=== PATIENT | male | born 1965 | race Caucasian/White ===

== ENCOUNTER 2017-05-13 07:42 | Day surgery (SDC) | payer MEDICARE ==
[2017-05-13] MEDS ORDERED: Lactated Ringer's 500 ML IV ONE (08:02)
[2017-05-13 08:14] VITALS: BMI 24.3
[2017-05-13] MEDS ORDERED: Midazolam 2 MG/2 ML VIAL ONE (09:28)
[2017-05-13] MEDS ORDERED: Propofol 10 mg/ml Inj (20 ML) ONE (09:28)
[2017-05-13] MEDS ORDERED: Dexamethasone 4 mg/1 ml ONE (09:57)
[2017-05-13] MEDS ORDERED: DiphenhydrAMINE 50 mg/ml Inj ONE (09:57)
[2017-05-13 11:07] VITALS: BP 123/67; PULSE 68; RESP 20; TEMP 97; O2SAT 100
== END 2017-05-13 13:22 | disposition home or self-care (01) ==
LOC: H.ENDO 07:42
PROVIDERS: ATTEND Internal Medicine Gastroenterology
DX: Z12.11 Encounter for screening for malignant neoplasm of colon (principal); E78.5 Hyperlipidemia, unspecified; I10 Essential (primary) hypertension; K64.8 Other hemorrhoids; K21.0 Gastro-esophageal reflux disease with esophagitis; K31.9 Disease of stomach and duodenum, unspecified; R12 Heartburn
CPT/HCPCS: 43239; 45378; 88307; J1100; J1200; J2001; J2250; J2704; J3010; J7120

== ENCOUNTER 2018-12-16 10:12 | Inpatient (IN) | payer MEDICARE, MEDICAID ==
[2018-12-16 10:13] VITALS: BMI 28.5
--- NOTE | 2018-12-16 11:19 | ED PDOC ---
HPI: General Adult Time Seen by Provider: 12/16/18 10:37 Chief Complaint (Nursing): GI Problem Chief Complaint (Provider): Dizziness History Per: Patient, Pipelines Supervisor (Hermila Nance [id number]) History/Exam Limitations: no limitations Onset/Duration Of Symptoms: Hrs Additional History Per: Patient Additional Complaint(s): 53yo male comes to ER reporting dizziness and vomiting since this morning. Patient states he was fine when he woke up, went to go make breakfast and then suddenly felt dizzy. Patient describes it as room spinning and states he never had such episode in his life. No additional complaints of headache, weakness, numbness, vision changes. No additional complaints. PMD: Dr. Allen NIHSS Stroke Scale - Date/Time Evaluation Performed Date Performed: 12/16/18 Time Performed: 16:05 When Was NIHSS Performed: Baseline - How Severe is the Stroke Level of Consciousness: 0=Alert LOC to Questions: 0=Both comments correct LOC to commands: 0=Obeys both correctly Best Gaze: 0=Normal (nystagmus) Visual: 0=No visual loss Facial: 0=Normal Motor Arm - Left: 0=No drift Motor Arm - Right: 0=No drift Motor Leg - Left: 0=No drift Motor Leg - Right: 0=No drift Limb Ataxia: 0=Absent Sensory: 0=Normal Best Language: 0=No aphasia Dysarthia: 0=Normal articulation Extinction & Inattention (Neglect): 0=Normal, no object Score: 0 Past Medical History Reviewed: Historical Data, Nursing Documentation, Vital Signs Vital Signs: Last Vital Signs Temp 97.3 F L 12/16/18 10:13 Pulse 81 12/16/18 10:13 Resp 20 12/16/18 10:13 BP 154/90 H 12/16/18 10:13 Pulse Ox 100 12/16/18 10:13 - Medical History PMH: Arthritis, Fractures (RT. ARM PLATE), Gastritis, HTN, Hypercholesterolemia, Hyperlipidemia, Peripheral Edema Denies: Diabetes, Hepatitis, HIV, Chronic Kidney Disease, Seizures, Sexually Transmitted Disease - Surgical History Surgical History: No Surg Hx - Family History Family History: States: Unknown Family Hx - Immunization History Hx Tetanus Toxoid Vaccination: No Hx Influenza Vaccination: No Hx Pneumococcal Vaccination: No - Home Medications Home Medications: Ambulatory Orders Medication Instructions Recorded Losartan [Cozaar] 100 mg PO DAILY 05/13/17 Rosuvastatin Calcium [Crestor] 10 mg PO DAILY 05/13/17 - Allergies Allergies/Adverse Reactions: Allergies Allergy/AdvReac Type Severity Reaction Status Date / Time No Known Allergies Allergy Verified 05/13/17 08:14 Review of Systems ROS Statement: Except As Marked, All Systems Reviewed And Found Negative Constitutional: Negative for: Fever, Chills Eyes: Negative for: Vision Change Gastrointestinal: Positive for: Vomiting Neurological: Positive for: Dizziness. Negative for: Weakness, Numbness Physical Exam - Reviewed Nursing Documentation Reviewed: Yes Vital Signs Reviewed: Yes - Physical Exam Appears: Positive for: Non-toxic, Uncomfortable Head Exam: Positive for: ATRAUMATIC, NORMAL INSPECTION, NORMOCEPHALIC Skin: Positive for: Normal Color, Warm, Dry Eye Exam: Positive for: EOMI, PERRL, Nystagmus (horizontal nystagmus on gazing to the right) ENT: Positive for: Other (dizzinee reproduced with head movements) Neck: Positive for: Normal, Supple Cardiovascular/Chest: Positive for: Regular Rate, Rhythm Respiratory: Positive for: Normal Breath Sounds Extremity: Positive for: Normal ROM Neurological/Psych: Positive for: Awake, Alert, Symmetric/Intact Strength (5/5 clinician oncology strength; 5/5 motor strength), Oriented (x 3). Negative for: Motor/Sensory Deficits - Laboratory Results Result Diagrams: 12/16/18 12:05 12/16/18 12:05 - ECG O2 Sat by Pulse Oximetry: 100 (RA) Pulse Ox Interpretation: Normal Medical Decision Making Medical Decision Making: Impression: Dizziness, likely BPPV Plan: -- Labs -- CT Head -- Meclizinne 50mg PO -- Zofran 4mg IV [address] Head FINDINGS: HEMORRHAGE: No intracranial hemorrhage. BRAIN: Normal pollock-white matter differentiation and density are appreciated throughout the cerebrum and cerebellum with the brainstem appearing unremarkable as well. There is no mass effect. There is no suspicious extra-axial fluid collection and the midline brain anatomy appears diffusely unremarkable. VENTRICLES: Unremarkable. No hydrocephalus. CALVARIUM: Unremarkable. PARANASAL SINUSES: Unremarkable as visualized. No significant inflammatory changes. MASTOID AIR CELLS: Unremarkable as visualized. No inflammatory changes. OTHER FINDINGS: None. IMPRESSION: Unremarkable unenhanced head CT. 1600 On reassessment, patient reports persistent dizziness. Discussed case with Dr. [place], patient to be admitted for observation for rule out stroke. Dr. Galloway consult placed for neurology. ASA given. urine, flu and cxr ordered given leukocytosis Plan of care discussed w patient, patient is agreeable. Scribe Attestation: Documented by Marycarmen Henderson acting as a scribe for Donald Swift MD. Provider Attestation: All medical record entries made by the Scribe were at my direction and personally dictated by me. I have reviewed the chart and agree that the record accurately reflects my personal performance of the history, physical exam, medical decision making, and the department course for this patient. I have also personally directed, reviewed, and agree with the discharge instructions and d isposition. Disposition - Clinical Impression Clinical Impression: Dizziness - Patient ED Disposition Is Patient to be Admitted: Yes - Disposition Disposition Time: 16:00 Condition: STABLE Forms: [employer] (Dominican)
[2018-12-16 12:26] LABS: BASO # 0.1 K/uL (0.0-0.2); BASO % 0.5 % (0.0-2.0); EOS % 0.3 % (0.0-4.0); HEMOGLOBIN 13.2 g/dL (12.0-18.0); LYMPH # 1.3 K/uL (1.0-4.3); MEAN CELL VOLUME 87.5 fl (80.0-94.0); MEAN CORPUSCULAR HEMOGLOBIN 29.3 pg (27.0-31.0); MEAN CORPUSCULAR HGB CONC 33.5 g/dL (33.0-37.0); MEAN PLATELET VOLUME 8.5 fl (7.2-11.7); MONO # 0.4 K/uL (0.0-0.8); NEUT # 12.7 K/uL (1.8-7.0); NEUT % 87.2 % (50.0-75.0); NRBC % 0.1 % (0.0-0.0); PLATELET COUNT 220 K/uL (130-400); RBC 4.48 Mil/uL (4.40-5.90); RED CELL DISTRIBUTION WIDTH 13.8 % (11.5-14.5); WHITE BLOOD COUNT 14.6 K/uL (4.8-10.8)
[2018-12-16 12:36] LABS: ALBUMIN 3.1 g/dL (3.5-5.0); BLOOD UREA NITROGEN 12 mg/dl (9-20); CALCIUM 8.7 mg/dL (8.4-10.2); GFR NON-AFRICAN AMERICAN > 60
[2018-12-16 12:42] LABS: ALT/SGPT 30 U/L (21-72); AST/SGOT 51 U/L (17-59)
[2018-12-16 13:02] LABS: LYMPHOCYTE 10 % (20-50); MONOCYTE 2 % (0-10); NEUTROPHIL 88 % (42-75); PLATELET ESTIMATE NORMAL (NORMAL); TOTAL CELLS COUNTED 100
--- NOTE | 2018-12-16 13:39 | CT ---
Date of service: 12/16/2018 PROCEDURE: CT HEAD WITHOUT CONTRAST. HISTORY: dizzziness COMPARISON: None available. TECHNIQUE: Axial computed tomography images were obtained through the head/brain without intravenous contrast. Radiation dose: Total exam DLP = 946.97 mGy-cm. This CT exam was performed using one or more of the following dose reduction techniques: Automated exposure control, adjustment of the mA and/or kV according to patient size, and/or use of iterative reconstruction technique. FINDINGS: HEMORRHAGE: No intracranial hemorrhage. BRAIN: Normal pollock-white matter differentiation and density are appreciated throughout the cerebrum and cerebellum with the brainstem appearing unremarkable as well. There is no mass effect. There is no suspicious extra-axial fluid collection and the midline brain anatomy appears diffusely unremarkable. VENTRICLES: Unremarkable. No hydrocephalus. CALVARIUM: Unremarkable. PARANASAL SINUSES: Unremarkable as visualized. No significant inflammatory changes. MASTOID AIR CELLS: Unremarkable as visualized. No inflammatory changes. OTHER FINDINGS: None. IMPRESSION: Unremarkable unenhanced head CT.
[2018-12-16 17:02] LABS: GRANULAR CAST 97 /lpf (0-1); RENAL EPITHELIAL 10 /hpf (0-3); SQUAMOUS EPITHIAL 7 /hpf (0-5); URINE BACTERIA OCC (<OCC); URINE BILIRUBIN NEGATIVE (NEGATIVE); URINE BLOOD NEGATIVE (NEGATIVE); URINE CLARITY SLIGHTY-CLOUDY (Clear); URINE COLOR YELLOW (YELLOW); URINE GLUCOSE (UA) 150 mg/dL (NEGATIVE); URINE LEUKOCYTE ESTERASE NEG Leu/uL (Negative); URINE PROTEIN >=500 mg/dL (NEGATIVE); URINE UROBILINOGEN 0.2-1.0 mg/dL (0.2-1.0)
[2018-12-16 17:07] LABS: URINE AMORPHOUS SEDIMENT FEW /ul (<OCC)
--- NOTE | 2018-12-16 17:46 | RAD ---
Date of service: 12/16/2018 HISTORY: Dizziness. Vomiting. COMPARISON: 01/08/2016. FINDINGS: LUNGS: No active pulmonary disease. PLEURA: No significant pleural effusion identified, no pneumothorax apparent. CARDIOVASCULAR: No atherosclerotic calcification present No radiographic findings to suggest acute or significant cardiovascular disease. OSSEOUS STRUCTURES: No significant abnormalities. VISUALIZED UPPER ABDOMEN: Normal. OTHER FINDINGS: None. IMPRESSION: No active disease. No significant interval change compared to the prior examination(s).
[2018-12-16] MEDS: Dextrose 5%/0.45% NS 1,000 ML IV SCH (22:17)
[2018-12-17 04:01] LABS: URINE BACTERIA RARE (<OCC); URINE BILIRUBIN NEGATIVE (NEGATIVE); URINE BLOOD NEGATIVE (NEGATIVE); URINE CLARITY SLIGHTY-CLOUDY (Clear); URINE COLOR YELLOW (YELLOW); URINE GLUCOSE (UA) 150 mg/dL (NEGATIVE); URINE LEUKOCYTE ESTERASE NEG Leu/uL (Negative); URINE PROTEIN >=500 mg/dL (NEGATIVE); URINE UROBILINOGEN 0.2-1.0 mg/dL (0.2-1.0)
[2018-12-17] MEDS: Levothyroxine 50 MCG TAB PO SCH (05:44)
[2018-12-17 05:46] LABS: HEMOGLOBIN 13.2 g/dL (12.0-18.0); MEAN CELL VOLUME 88.4 fl (80.0-94.0); MEAN CORPUSCULAR HEMOGLOBIN 29.1 pg (27.0-31.0); MEAN CORPUSCULAR HGB CONC 32.9 g/dL (33.0-37.0); RBC 4.52 Mil/uL (4.40-5.90); RED CELL DISTRIBUTION WIDTH 14.1 % (11.5-14.5); WHITE BLOOD COUNT 12.6 K/uL (4.8-10.8)
[2018-12-17 06:10] LABS: ALBUMIN 2.7 g/dL (3.5-5.0); ALT/SGPT 31 U/L (21-72); AMYLASE 86 U/L (30-110); AST/SGOT 32 U/L (17-59); BLOOD UREA NITROGEN 12 mg/dl (9-20); CALCIUM 8.8 mg/dL (8.4-10.2); GFR NON-AFRICAN AMERICAN > 60; HDL CHOLESTEROL 38 MG/DL (30-70); LIPASE 101 U/L (23-300)
[2018-12-17 06:16] LABS: LDL CHOLESTEROL 114 mg/dL (0-129)
[2018-12-17] MEDS ORDERED: Gadodiamide 287 MG/ML VIAL (15ML) IV ONE (07:42)
[2018-12-17] MEDS: Dextrose 5%/0.45% NS 1,000 ML IV SCH ×2 (09:14→20:00)
[2018-12-17 10:52] LABS: T3 1.14 nmol/L (1.49-2.60)
--- NOTE | 2018-12-17 11:49 | MRI ---
Date of service: 12/17/2018 PROCEDURE: MRI BRAIN WITH AND WITHOUT CONTRAST HISTORY: Dizziness COMPARISON: CT head without contrast from 12/16/2018. TECHNIQUE: Multiplanar, multisequence MR images of the brain were obtained with and without intravenous contrast enhancement. 18 mL Omniscan was injected intravenously. FINDINGS: HEMORRHAGE: None DWI: No evidence of an acute or early subacute infarction. BRAIN PARENCHYMA: Hernandez-white matter differentiation is preserved. There is no mass, mass effect or abnormal extra-axial fluid collection. There is no territorial infarction. The midline sagittal structures are normal. ENHANCEMENT: No abnormal intracranial enhancement. VENTRICLES: The ventricles are normal in size, shape and configuration. CRANIUM: There is normal bone marrow signal pattern. ORBITS: Grossly unremarkable. PARANASAL SINUSES/MASTOIDS: Clear VASCULAR SYSTEM: There are normal signal voids in the larger intracranial arteries. OTHER FINDINGS: None . IMPRESSION: Unremarkable pre and post contrast enhanced MRI of the brain.
[2018-12-17] MEDS ORDERED: Ergocalciferol 50,000 Intl Units Cap PO SCH (12:45)
--- NOTE | 2018-12-17 13:54 | CARD ---
APPROVED REPORT Date of service: 12/17/2018 EXAM: Two-dimensional and M-mode echocardiogram with Doppler and color Doppler. Other Information Quality : GoodRhythm : NSR INDICATION Dizziness and Vertigo 2D DIMENSIONS IVSd1.31 (0.7-1.1cm)LVDd5.25 (3.9-5.9cm) LVOT Diameter2.51 (1.8-2.4cm)PWd0.93 (0.7-1.1cm) IVSs1.23 (0.8-1.2cm)LVDs3.89 (2.5-4.0cm) FS (%) 25.9 %PWs1.49 (0.8-1.2cm) M-Mode DIMENSIONS Left Atrium (MM)4.29 (2.5-4.0cm)IVSd1.26 (0.7-1.1cm) Aortic Root3.47 (2.2-3.7cm)LVDd5.41 (4.0-5.6cm) Aortic Cusp Exc.2.21 (1.5-2.0cm)PWd1.03 (0.7-1.1cm) IVSs1.47 cmFS (%) 28 % LVDs3.88 (2.0-3.8cm)PWs1.47 cm Aortic Valve AoV Peak Bfvhemex959.2cm/sAoV VTI22.8cmAO Peak GR.5mmHg LVOT Peak Nuzmimfk083.6cm/sLVOT VTI19.19cmAO Mean GR.3mmHg CARMELA (VMAX)2.13jx1QXI (VTI)2.09cm2 Mitral Valve E/A ratio0.0 TDI E/Lateral E'0.0E/Medial E'0.0 LEFT VENTRICLE The left ventricle is normal size. There is normal left ventricular wall thickness. The left ventricular systolic function is normal. The estimated ejection fraction is 55-60% No regional wall motion abnormalities noted.. Transmitral Doppler flow pattern is Grade I-abnormal relaxation pattern. No left ventricle thrombus noted on this study. There is no ventricular septal defect visualized. There is no left ventricular aneurysm. There is no mass noted in the left ventricle. RIGHT VENTRICLE The right ventricle is normal size. There is normal right ventricular wall thickness. The right ventricular systolic function is normal. ATRIA The left atrium is mildly dilated. The right atrium size is normal. The interatrial septum is intact with no evidence for an atrial septal defect. AORTIC VALVE The aortic valve is normal in structure. No aortic regurgitation is present. There is no aortic valvular stenosis. There is no aortic valvular vegetation. MITRAL VALVE The mitral valve is normal in structure. There is no evidence of mitral valve prolapse. There is no mitral valve stenosis. There is mild mitral valve regurgitation noted. TRICUSPID VALVE The tricuspid valve is normal in structure. There is no tricuspid valve regurgitation noted. There is no tricuspid valve prolapse or vegetation. There is no tricuspid valve stenosis. PULMONIC VALVE The pulmonary valve is normal in structure. There is no pulmonic valvular regurgitation. There is no pulmonic valvular stenosis. GREAT VESSELS The aortic root is normal in size. The ascending aorta is normal in size. The pulmonary artery is normal. The IVC is normal in size and collapses >50% with inspiration. PERICARDIAL EFFUSION There is no pericardial effusion. There is no pleural effusion. <Conclusion> The estimated ejection fraction is 55-60% Transmitral Doppler flow pattern is Grade I-abnormal relaxation pattern. The left atrium is mildly dilated. There is mild mitral valve regurgitation noted. There is no tricuspid valve regurgitation noted. The IVC is normal in size and collapses >50% with inspiration.
--- NOTE | 2018-12-17 14:43 | CP.PCM.HP ---
History of Present Illness - History of Present Illness History of Present Illness: CC: Dizziness. 53 y/o M, with extensive PMHx : HTN, Dyslipidemia, PVD, O/A, Heriated Disk, ORIF R Forearm 2nd to Fx, Pt was brought to [facility] on 12/16[facility]18, by EMS to be evaluated for a new onset of Dizziness on DOA. As per PT, he woke up on 12/16/18 AM and since stated to walk, he had a suddenly feeling of dizziness/light-headed associated to nausea and vomiting with no relief. 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 Pt denied: Fever, chills, abdominal pain, urinary symptoms, CP, palpitations, headache, weakness, numbness, vision changes, SOB, cough, sick contact, recent travel out of [facility]. Head CT: Unremarkable. Brain MRI: Unremarkable. Echo: LVEF: 55-60%, mild Mitral valve regurgitation, Transmitral Doppler is grade I abnormal relaxation pattern. CXR: No active disease. Carotid U-S: No evidence of significant stenosis. Present on Admission - Present on Admission Any Indicators Present on Admission: No Review of Systems - Constitutional Constitutional: Other (negative) - EENT Eyes: Requires Corrective Lenses Ears: Other (negative) Nose/Mouth/Throat: Other (negative) - Cardiovascular Cardiovascular: Lightheadedness, Rapid Heart Rate - Respiratory Respiratory: Other (negative) - Gastrointestinal Gastrointestinal: Nausea, Vomiting - Genitourinary Genitourinary: Other (negative) - Musculoskeletal Musculoskeletal: Arthralgias - Integumentary Integumentary: Other (negative) - Neurological Neurological: Dizziness - Psychiatric Psychiatric: Other (negative) - Endocrine Endocrine: Other (negative) - Hematologic/Lymphatic Hematologic: Other (negative) Past Patient History - Infectious Disease Hx of Infectious Diseases: None - Past Medical History & Family History Past Medical History?: Yes Pertinent Family History: Unknown - Past Social History Smoking Status: Never Smoked Alcohol: None Drugs: Denies Home Situation {Lives}: Alone - CARDIAC Hx Cardiac Disorders: Yes Hx Hypercholesterolemia: Yes Hx Hypertension: Yes Hx Peripheral Edema: Yes - PULMONARY Hx Respiratory Disorders: No - NEUROLOGICAL Hx Neurological Disorder: No Hx Seizures: No - HEENT Hx HEENT Problems: No - RENAL Hx Chronic Kidney Disease: No - ENDOCRINE/METABOLIC Hx Endocrine Disorders: No - HEMATOLOGICAL/ONCOLOGICAL Hx Blood Disorders: No Hx Human Immunodeficiency Virus (HIV): No - INTEGUMENTARY Hx Dermatological Problems: No - MUSCULOSKELETAL/RHEUMATOLOGICAL Hx Musculoskeletal Disorders: Yes Hx Arthritis: Yes Hx Falls: No Hx Fractures: Yes (RT. ARM PLATE) - GASTROINTESTINAL Hx Gastrointestinal Disorders: Yes Hx Gastritis: Yes - GENITOURINARY/GYNECOLOGICAL Hx Sexually Transmitted Disorders: No - PSYCHIATRIC Hx Psychophysiologic Disorder: No Hx Substance Use: No - SURGICAL HISTORY Hx Surgeries: Yes Other/Comment: RT ARM SX - ANESTHESIA Hx Anesthesia: Yes Hx Anesthesia Reactions: No Hx Malignant Hyperthermia: No Meds Allergies/Adverse Reactions: Allergies Allergy/AdvReac Type Severity Reaction Status Date / Time No Known Allergies Allergy Verified 05/13/17 08:14 Physical Exam - Constitutional Appears: No Acute Distress - Head Exam Head Exam: NORMAL INSPECTION - Eye Exam Eye Exam: PERRL - ENT Exam ENT Exam: Normal Exam - Neck Exam Neck exam: Positive for: Normal Inspection - Respiratory Exam Respiratory Exam: NORMAL BREATHING PATTERN - Cardiovascular Exam Cardiovascular Exam: REGULAR RHYTHM - GI/Abdominal Exam GI & Abdominal Exam: Normal Bowel Sounds, Soft - Extremities Exam Extremities exam: Positive for: normal inspection - Back Exam Back exam: NORMAL INSPECTION - Neurological Exam Neurological exam: Alert, Oriented x3 Additional comments: No motor/sensory deficit. - Psychiatric Exam Psychiatric exam: Normal Mood - Skin Skin Exam: Warm Results - Vital Signs Recent Vital Signs: Last Vital Signs Temp 97.9 F 12/17/18 12:18 Pulse 94 H 12/17/18 12:18 Resp 18 12/17/18 12:18 BP 155/84 H 12/17/18 12:18 Pulse Ox 96 12/17/18 12:18 reviewed Jason - Labs Result Diagrams: 12/17/18 04:20 12/17/18 04:20 Labs: Laboratory Results - last 24 hr 12/16/18 12/16/18 12/17/18 16:43 16:43 03:53 WBC RBC Hgb Hct MCV MCH MCHC RDW Plt Count Sodium Potassium Chloride Carbon Dioxide Anion Gap BUN Creatinine Est GFR ( Amer) Est GFR (Non-Af Amer) Random Glucose Calcium Total Bilirubin AST ALT Alkaline Phosphatase Total Protein Albumin Globulin Albumin/Globulin Ratio Triglycerides Cholesterol LDL Cholesterol Direct HDL Cholesterol Amylase Lipase 25-OH Vitamin D Total Thyroxine (T4) Total T3 TSH 3rd Generation Urine Color Yellow Yellow Urine Clarity Slighty-cloudy Slighty-cloudy Urine pH 8.0 8.0 Ur Specific [place] 1.017 1.010 Urine Protein >=500 >=500 Urine Glucose (UA) 150 150 Urine Ketones Negative Negative Urine Blood Negative Negative Urine Nitrate Negative Negative Urine Bilirubin Negative Negative Urine Urobilinogen 0.2-1.0 0.2-1.0 Ur Leukocyte Esterase Neg Neg Urine RBC (Auto) 3 7 H Urine Microscopic WBC 5 5 Ur Squamous Epith Cells 7 H Ur Renal Epithelial Cell 10 H Amorphous Sediment Few H Urine Bacteria Occ H Rare Hyaline Casts 3-5 H Granular Casts (Auto) 97 Influenza Typ A,B (EIA) Negative for flu a/b 12/17/18 12/17/18 12/17/18 04:20 04:20 04:20 WBC 12.6 H RBC 4.52 Hgb 13.2 Hct 40.0 MCV 88.4 MCH 29.1 MCHC 32.9 L RDW 14.1 Plt Count 214 Sodium 139 Potassium 3.9 Chloride 111 H Carbon Dioxide 25 Anion Gap 7 L BUN 12 Creatinine 1.0 Est GFR ( Amer) > 60 Est GFR (Non-Af Amer) > 60 Random Glucose 89 Calcium 8.8 Total Bilirubin < 0.1 L AST 32 ALT 31 Alkaline Phosphatase 64 Total Protein 5.3 L Albumin 2.7 L Globulin 2.6 Albumin/Globulin Ratio 1.0 Triglycerides 204 H Cholesterol 209 H LDL Cholesterol Direct 114 HDL Cholesterol 38 Amylase 86 Lipase 101 25-OH Vitamin D Total < 12.8 L Thyroxine (T4) 8.43 Total T3 TSH 3rd Generation 2.40 Urine Color Urine Clarity Urine pH Ur Specific [place] Urine Protein Urine Glucose (UA) Urine Ketones Urine Blood Urine Nitrate Urine Bilirubin Urine Urobilinogen Ur Leukocyte Esterase Urine RBC (Auto) Urine Microscopic WBC Ur Squamous Epith Cells Ur Renal Epithelial Cell Amorphous Sediment Urine Bacteria Hyaline Casts Granular Casts (Auto) Influenza Typ A,B (EIA) 12/17/18 04:20 WBC RBC Hgb Hct MCV MCH MCHC RDW Plt Count Sodium Potassium Chloride Carbon Dioxide Anion Gap BUN Creatinine Est GFR ( Amer) Est GFR (Non-Af Amer) Random Glucose Calcium Total Bilirubin AST ALT Alkaline Phosphatase Total Protein Albumin Globulin Albumin/Globulin Ratio Triglycerides Cholesterol LDL Cholesterol Direct HDL Cholesterol Amylase Lipase 25-OH Vitamin D Total Thyroxine (T4) Total T3 1.14 L TSH 3rd Generation 2.43 Urine Color Urine Clarity Urine pH Ur Specific [place] Urine Protein Urine Glucose (UA) Urine Ketones Urine Blood Urine Nitrate Urine Bilirubin Urine Urobilinogen Ur Leukocyte Esterase Urine RBC (Auto) Urine Microscopic WBC Ur Squamous Epith Cells Ur Renal Epithelial Cell Amorphous Sediment Urine Bacteria Hyaline Casts Granular Casts (Auto) Influenza Typ A,B (EIA) reviewed J.P. - EKG Data EKG comments: reviewed J.P. - Imaging and Cardiology CT scan - head Status: Report reviewed by me (Jason) Chest x-ray Status: Report reviewed by me (Jason) MRI - head Status: Report reviewed by me (Jason) Carotid/Artery U-S Status: Report reviewed by me Assessment & Plan (1) Dizziness Status: Acute Priority: High (2) Hypertension Status: Chronic Priority: High (3) HTN (hypertension) Status: Chronic Priority: High (4) Dyslipidemia Status: Chronic Priority: High (5) Hypothyroidism Status: Chronic Priority: Medium - Assessment and Plan (Free Text) Plan: F/U Renal U-S, continue Antivert, Zofran prn, Dextrose IV and rest of Tx. Neurology consult. - Date & Time Date: 12/17/18 Time: 11:40
--- NOTE | 2018-12-17 14:45 | US ---
Date of service: 12/17/2018 PROCEDURE: Duplex ultrasound of the carotid and vertebral arteries. HISTORY: Dizziness COMPARISON: None available. TECHNIQUE: Grayscale and duplex Doppler evaluation of the cervical carotid and vertebral arteries were performed. The common carotid, carotid bifurcations and cervical ICA and proximal ECA were evaluated. The vertebral arteries were evaluated for gross patency and direction. FINDINGS: There are calcified atherosclerotic plaques in both carotid bulbs and left common carotid artery. RIGHT CAROTID ARTERIES: Common Carotid Artery: Normal. Maximal flow velocity of 93.5 cm/s. Carotid Bifurcation: Normal. Internal Carotid Artery:Normal. Maximal flow velocity of 96.3 cm/s. External Carotid Artery (proximal branches): Normal. Maximal flow velocity of 118.6 cm/s. ICA/CCA Ratio: 1.0 LEFT CAROTID ARTERIES: Common Carotid Artery: Normal. Maximal flow velocity of 89.8 cm/s. Carotid Bifurcation: Normal. Internal Carotid Artery:Normal. Maximal flow velocity of 71.4 cm/s. External Carotid Artery (proximal branches): Normal. Maximal flow velocity of 148.9 cm/s. ICA/CCA Ratio: 0.8 VERTEBRAL ARTERIES: Right Vertebral Artery: Patent. Antegrade flow. Left Vertebral Artery: Patent. Antegrade flow. OTHER FINDINGS: No atherosclerotic calcification present IMPRESSION: No evidence of hemodynamically significant stenosis in the internal carotid arteries by peak systolic velocity criteria. Patent bilateral vertebral arteries with antegrade flow.
--- NOTE | 2018-12-17 22:09 | CP.PCM.CON ---
History of Present Illness - History of Present Illness History of Present Illness: Neurology Consultation Note: Consult requested by Dr. Allen Mr. Somers is a 53-year-old man with a past medical history of disc herniations in his back, who states that he woke up this morning and was okay, but then went to make breakfast and felt that he was suddenly dizzy. He felt that his vision went dark and he was not able to maintain his balance. He sensed that the room was spinning. He presented to the ED and did not have any focal deficits later in the day. He currently still complains of dizziness when he sits up, but his nausea and vomiting has improved. He is able to ambulate with assistance due to his dizziness. He denied headache, current vision loss, weakness, numbness or any other focal deficits. MRI of the brain with and without contrast was unremarkable. Review of Systems - Review of Systems All systems: reviewed and no additional remarkable complaints except Past Patient History - Infectious Disease Hx of Infectious Diseases: None - Past Medical History & Family History Past Medical History?: Yes - Past Social History Smoking Status: Never Smoked Alcohol: None Drugs: Denies Home Situation {Lives}: Alone - CARDIAC Hx Cardiac Disorders: Yes Hx Hypercholesterolemia: Yes Hx Hypertension: Yes Hx Peripheral Edema: Yes - PULMONARY Hx Respiratory Disorders: No - NEUROLOGICAL Hx Neurological Disorder: No Hx Seizures: No - HEENT Hx HEENT Problems: No - RENAL Hx Chronic Kidney Disease: No - ENDOCRINE/METABOLIC Hx Endocrine Disorders: No - HEMATOLOGICAL/ONCOLOGICAL Hx Blood Disorders: No Hx Human Immunodeficiency Virus (HIV): No - INTEGUMENTARY Hx Dermatological Problems: No - MUSCULOSKELETAL/RHEUMATOLOGICAL Hx Musculoskeletal Disorders: Yes Hx Arthritis: Yes Hx Falls: No Hx Fractures: Yes (RT. ARM PLATE) - GASTROINTESTINAL Hx Gastrointestinal Disorders: Yes Hx Gastritis: Yes - GENITOURINARY/GYNECOLOGICAL Hx Sexually Transmitted Disorders: No - PSYCHIATRIC Hx Psychophysiologic Disorder: No Hx Substance Use: No - SURGICAL HISTORY Hx Surgeries: Yes Other/Comment: RT ARM SX - ANESTHESIA Hx Anesthesia: Yes Hx Anesthesia Reactions: No Hx Malignant Hyperthermia: No Meds Allergies/Adverse Reactions: Allergies Allergy/AdvReac Type Severity Reaction Status Date / Time No Known Allergies Allergy Verified 05/13/17 08:14 - Medications Medications: Current Medications Acetaminophen (Tylenol 325mg Tab) 325 mg PO Q6 PRN PRN Reason: Fever >100.4 F Acetaminophen (Tylenol 325mg Tab) 650 mg PO Q4 PRN PRN Reason: Headache Ergocalciferol (Drisdol 50,000 Intl Units Cap) 1 cap PO Q7D [facility] Last Admin: 12/17/18 14:08 Dose: 1 cap Levothyroxine Sodium (Synthroid) 50 mcg PO DAILY@0630 [facility] Last Admin: 12/17/18 05:44 Dose: 50 mcg Meclizine HCl (Antivert) 25 mg PO TID [facility] Last Admin: 12/17/18 17:18 Dose: 25 mg Ondansetron HCl (Zofran Inj) 4 mg IVP Q4 PRN PRN Reason: Nausea/Vomiting Tamsulosin HCl (Flomax) 0.4 mg PO DAILY [facility] Last Admin: 12/17/18 09:14 Dose: 0.4 mg Physical Exam - Constitutional Appears: Well - Head Exam Head Exam: ATRAUMATIC, NORMAL INSPECTION, NORMOCEPHALIC - Eye Exam Eye Exam: EOMI, Normal appearance, PERRL Pupil Exam: NORMAL ACCOMODATION, PERRL - ENT Exam ENT Exam: Mucous Membranes Moist, Normal Exam - Neck Exam Neck exam: Positive for: Normal Inspection - Respiratory Exam Respiratory Exam: Clear to Auscultation Bilateral, NORMAL BREATHING PATTERN - Cardiovascular Exam Cardiovascular Exam: REGULAR RHYTHM, +S1, +S2 - GI/Abdominal Exam GI & Abdominal Exam: Normal Bowel Sounds, Soft. absent: Tenderness - Extremities Exam Extremities exam: Positive for: normal inspection - Back Exam Back exam: NORMAL INSPECTION - Neurological Exam Neurological exam: Abnormal Gait, Alert, CN II-XII Intact, Oriented x3, Reflexes Normal - Psychiatric Exam Psychiatric exam: Normal Affect, Normal Mood - Skin Skin Exam: Dry, Intact, Normal Color, Warm Results - Vital Signs Recent Vital Signs: Last Vital Signs Temp 98.5 F 12/17/18 20:15 Pulse 97 H 12/17/18 20:15 Resp 17 12/17/18 20:15 BP 155/87 H 12/17/18 20:15 Pulse Ox 94 L 12/17/18 20:15 - Labs Result Diagrams: 12/17/18 04:20 12/17/18 04:20 Labs: Laboratory Results - last 24 hr 12/17/18 12/17/18 12/17/18 03:53 04:20 04:20 WBC 12.6 H RBC 4.52 Hgb 13.2 Hct 40.0 MCV 88.4 MCH 29.1 MCHC 32.9 L RDW 14.1 Plt Count 214 Sodium 139 Potassium 3.9 Chloride 111 H Carbon Dioxide 25 Anion Gap 7 L BUN 12 Creatinine 1.0 Est GFR ( Amer) > 60 Est GFR (Non-Af Amer) > 60 Random Glucose 89 Calcium 8.8 Total Bilirubin < 0.1 L AST 32 ALT 31 Alkaline Phosphatase 64 Total Protein 5.3 L Albumin 2.7 L Globulin 2.6 Albumin/Globulin Ratio 1.0 Triglycerides 204 H Cholesterol 209 H LDL Cholesterol Direct 114 HDL Cholesterol 38 Amylase 86 Lipase 101 25-OH Vitamin D Total Thyroxine (T4) 8.43 Total T3 TSH 3rd Generation 2.40 Urine Color Yellow Urine Clarity Slighty-cloudy Urine pH 8.0 Ur Specific [place] 1.010 Urine Protein >=500 Urine Glucose (UA) 150 Urine Ketones Negative Urine Blood Negative Urine Nitrate Negative Urine Bilirubin Negative Urine Urobilinogen 0.2-1.0 Ur Leukocyte Esterase Neg Urine RBC (Auto) 7 H Urine Microscopic WBC 5 Urine Bacteria Rare 12/17/18 12/17/18 04:20 04:20 WBC RBC Hgb Hct MCV MCH MCHC RDW Plt Count Sodium Potassium Chloride Carbon Dioxide Anion Gap BUN Creatinine Est GFR ( Amer) Est GFR (Non-Af Amer) Random Glucose Calcium Total Bilirubin AST ALT Alkaline Phosphatase Total Protein Albumin Globulin Albumin/Globulin Ratio Triglycerides Cholesterol LDL Cholesterol Direct HDL Cholesterol Amylase Lipase 25-OH Vitamin D Total < 12.8 L Thyroxine (T4) Total T3 1.14 L TSH 3rd Generation 2.43 Urine Color Urine Clarity Urine pH Ur Specific [place] Urine Protein Urine Glucose (UA) Urine Ketones Urine Blood Urine Nitrate Urine Bilirubin Urine Urobilinogen Ur Leukocyte Esterase Urine RBC (Auto) Urine Microscopic WBC Urine Bacteria Assessment & Plan (1) Dizziness Assessment and Plan: Likely benign positional vertigo. I recommend obtaining a CTA of the head/neck for evaluation of possible VBI. If meclizine is not helping, start Valium 2 mg Q8 hours for vertigo. Vestibular rehab is recommended. Thank you for this consultation. Status: Acute Priority: High
[2018-12-18] MEDS: Levothyroxine 50 MCG TAB PO SCH (06:31)
[2018-12-18 08:13] VITALS: RESP 20
--- NOTE | 2018-12-18 12:31 | US ---
Date of service: 12/18/2018 PROCEDURE: Ultrasonography renal arterial evaluation HISTORY: Hypertension. COMPARISON: None available. TECHNIQUE: Real-time ultrasonography evaluation of the renal arteries were performed. Comparison is made to the aorta. Report prepared by cardiac/vascular sonographer. FINDINGS: AORTA: Patent. Peak systolic velocity 124.6 centimeters/second RIGHT RENAL ARTERY: Renal artery to aorta ratio: 1.2 * Proximal segment: Patent. Peak systolic velocity 150.6 centimeters/second * Mid segment: Patent. Peak systolic velocity 119.1 centimeters/second * Distal segment: Patent. Peak systolic velocity 90.2 centimeters/second Other findings: Right Kidney measures approximately 5.1 x 12.6 centimeters. LEFT RENAL ARTERY: Renal artery to aorta ratio: 1.1 * Proximal segment: Patent. Peak systolic velocity 124.0 centimeters/second * Mid segment: Patent. Peak systolic velocity 133.4 centimeters/second * Distal segment: Patent. Peak systolic velocity 99.3 centimeters/second Other findings: Left Kidney measures approximately 6 point by 12.9 centimeters. IMPRESSION: Limited evaluation. No definite hemodynamically significant stenosis involving the renal arteries as visualized. (Please note that the proximal left peroneal artery was not visualized.
--- NOTE | 2018-12-18 13:01 | CP.PCM.PN ---
Subjective - Date & Time of Evaluation Date of Evaluation: 12/18/18 Time of Evaluation: 12:59 - Subjective Subjective: Neuro Follow-Up Note: Mr. Somers was evaluated this afternoon at bedside. Family present. Pt states that he feels better today. He still has dizziness but it is not as strong as before. Denies h/a, visual changes, tinnitus, chest pain, palpitations, sob, cough, abd pain, n/v/d, paresthesias. Objective - Vital Signs/Intake and Output Vital Signs (last 24 hours): Temp Pulse Resp BP Pulse Ox 97.6 F 96 H 20 161/93 H 94 L 12/18/18 12:11 12/18/18 12:11 12/18/18 12:11 12/18/18 12:11 12/18/18 12:11 - Medications Medications: Current Medications Acetaminophen (Tylenol 325mg Tab) 325 mg PO Q6 PRN PRN Reason: Fever >100.4 F Acetaminophen (Tylenol 325mg Tab) 650 mg PO Q4 PRN PRN Reason: Headache Last Admin: 12/17/18 22:05 Dose: 650 mg Amlodipine Besylate (Norvasc) 10 mg PO DAILY [facility] Ergocalciferol (Drisdol 50,000 Intl Units Cap) 1 cap PO Q7D [facility] Last Admin: 12/17/18 14:08 Dose: 1 cap Levothyroxine Sodium (Synthroid) 50 mcg PO DAILY@0630 [facility] Last Admin: 12/18/18 06:31 Dose: 50 mcg Meclizine HCl (Antivert) 25 mg PO TID [facility] Last Admin: 12/18/18 10:53 Dose: 25 mg Ondansetron HCl (Zofran Inj) 4 mg IVP Q4 PRN PRN Reason: Nausea/Vomiting Tamsulosin HCl (Flomax) 0.4 mg PO DAILY [facility] Last Admin: 12/18/18 10:54 Dose: 0.4 mg - Labs Labs: 12/17/18 04:20 12/17/18 04:20 - Constitutional Appears: Well, Non-toxic, No Acute Distress - Head Exam Head Exam: ATRAUMATIC, NORMAL INSPECTION, NORMOCEPHALIC - Eye Exam Eye Exam: EOMI, Normal appearance, PERRL Pupil Exam: NORMAL ACCOMODATION, PERRL - ENT Exam ENT Exam: Mucous Membranes Moist - Neck Exam Neck Exam: Full ROM, Normal Inspection - Respiratory Exam Respiratory Exam: NORMAL BREATHING PATTERN - Extremities Exam Extremities Exam: Full ROM. absent: Calf Tenderness, Pedal Edema - Back Exam Back Exam: Full ROM - Neurological Exam Neurological Exam: Alert, Awake, CN II-XII Intact, Normal Gait, Oriented x3, Reflexes Normal Neuro motor strength exam: Left Upper Extremity: 5, Right Upper Extremity: 5, Left Lower Extremity: 5, Right Lower Extremity: 5 Additional comments: Speech clear, fluid No motor or sensory deficits. No tremors Gait observed to be steady - Psychiatric Exam Psychiatric exam: Normal Affect, Normal Mood - Skin Skin Exam: Normal Color Assessment and Plan (1) Dizziness Assessment & Plan: Imaging reviewed: -CT Head (12/17/18): unremarkable -MRI Brain (12/17/18): unremarkable -Carotid U/S (12/17/18): no stenosis or occlusion -Pending CTA Head and Neck to r/o VBI---if this is negative, pt can be cleared from neuro standpoint for d/c home. -Vestibular therapy as outpatient; he may also see ENT as outpatient. -Please continue Meclizine and Gabapentin upon d/c--please provide rx. -Notify neuro team of any abnormal findings on CTA or acute changes in pt's condition. Mary Anne Peres, LINDSAY, [employer] Discussed with Dr. Galloway Status: Acute
[2018-12-18 15:41] VITALS: PULSE 108
--- NOTE | 2018-12-18 15:43 | CP.PCM.PN ---
Objective - Vital Signs/Intake and Output Vital Signs (last 24 hours): Temp Pulse Resp BP Pulse Ox 97.6 F 108 H 20 158/92 H 98 12/18/18 15:41 12/18/18 15:41 12/18/18 15:41 12/18/18 15:41 12/18/18 15:41 - Medications Medications: Current Medications Acetaminophen (Tylenol 325mg Tab) 325 mg PO Q6 PRN PRN Reason: Fever >100.4 F Acetaminophen (Tylenol 325mg Tab) 650 mg PO Q4 PRN PRN Reason: Headache Last Admin: 12/17/18 22:05 Dose: 650 mg Amlodipine Besylate (Norvasc) 10 mg PO DAILY [facility] Last Admin: 12/18/18 13:09 Dose: 10 mg Ergocalciferol (Drisdol 50,000 Intl Units Cap) 1 cap PO Q7D [facility] Last Admin: 12/17/18 14:08 Dose: 1 cap Levothyroxine Sodium (Synthroid) 50 mcg PO DAILY@0630 [facility] Last Admin: 12/18/18 06:31 Dose: 50 mcg Meclizine HCl (Antivert) 25 mg PO TID [facility] Last Admin: 12/18/18 12:56 Dose: 25 mg Ondansetron HCl (Zofran Inj) 4 mg IVP Q4 PRN PRN Reason: Nausea/Vomiting Tamsulosin HCl (Flomax) 0.4 mg PO DAILY [facility] Last Admin: 12/18/18 10:54 Dose: 0.4 mg - Labs Labs: 12/17/18 04:20 12/17/18 04:20 Assessment and Plan (1) Dizziness Status: Acute (2) Hypertension Status: Chronic (3) HTN (hypertension) Status: Chronic (4) Dyslipidemia Status: Chronic (5) Hypothyroidism Status: Chronic
[2018-12-18] MEDS ORDERED: Iodixanol 320 MG/ML 100 ML BOTTLE IV ONE (16:36)
[2018-12-18] MEDS ORDERED: Sodium Chloride 0.9% 50 ML IV ONE (16:36)
[2018-12-18 20:02] VITALS: BP 160/88; TEMP 97.8; O2SAT 99
--- NOTE | 2018-12-19 10:37 | CP.PCM.DIS ---
Provider - Provider Date of Admission: 12/16/18 16:09 Attending physician: George Allen MD Consults: 12/16/18 16:08 Neurology Consult Stat Comment: Consulting Provider: Placido Galloway Consulting Physician: Placido Galloway Reason for Consult: dizzy Diagnosis - Discharge Diagnosis (1) Dizziness Status: Acute Priority: High (2) Hypertension Status: Chronic Priority: High (3) HTN (hypertension) Status: Chronic Priority: High (4) Dyslipidemia Status: Chronic Priority: High (5) Hypothyroidism Status: Chronic Priority: Medium Hospital Course - Lab Results Lab Results: Micro Results 12/16/18 16:43 Urine Random Urine Culture - Final No Growth (<1,000 CFU/ML) Most Recent Lab Values WBC 12.6 K/uL (4.8-10.8) H 12/17/18 04:20 RBC 4.52 Mil/uL (4.40-5.90) 12/17/18 04:20 Hgb 13.2 g/dL (12.0-18.0) 12/17/18 04:20 Hct 40.0 % (35.0-51.0) 12/17/18 04:20 MCV 88.4 fl (80.0-94.0) 12/17/18 04:20 MCH 29.1 pg (27.0-31.0) 12/17/18 04:20 MCHC 32.9 g/dL (33.0-37.0) L 12/17/18 04:20 RDW 14.1 % (11.5-14.5) 12/17/18 04:20 Plt Count 214 K/uL (130-400) 12/17/18 04:20 MPV 8.5 fl (7.2-11.7) 12/16/18 12:05 Neut % (Auto) 87.2 % (50.0-75.0) H 12/16/18 12:05 Lymph % (Auto) 9.0 % (20.0-40.0) L 12/16/18 12:05 [place] % (Auto) 3.0 % (0.0-10.0) 12/16/18 12:05 Eos % (Auto) 0.3 % (0.0-4.0) 12/16/18 12:05 Baso % (Auto) 0.5 % (0.0-2.0) 12/16/18 12:05 Neut # (Auto) 12.7 K/uL (1.8-7.0) H 12/16/18 12:05 Lymph # (Auto) 1.3 K/uL (1.0-4.3) 12/16/18 12:05 [place] # (Auto) 0.4 K/uL (0.0-0.8) 12/16/18 12:05 Eos # (Auto) 0.0 K/uL (0.0-0.7) 12/16/18 12:05 Baso # (Auto) 0.1 K/uL (0.0-0.2) 12/16/18 12:05 Neutrophils % (Manual) 88 % (42-75) H 12/16/18 12:05 Lymphocytes % (Manual) 10 % (20-50) L 12/16/18 12:05 Monocytes % (Manual) 2 % (0-10) 12/16/18 12:05 Platelet Estimate Normal (NORMAL) 12/16/18 12:05 RBC Morphology Normal (NORMAL) 12/16/18 12:05 Sodium 139 mmol/l (132-148) 12/17/18 04:20 Potassium 3.9 MMOL/L (3.6-5.0) 12/17/18 04:20 Chloride 111 mmol/L (98-107) H 12/17/18 04:20 Carbon Dioxide 25 mmol/L (22-30) 12/17/18 04:20 Anion Gap 7 (10-20) L 12/17/18 04:20 BUN 12 mg/dl (9-20) 12/17/18 04:20 Creatinine 1.0 mg/dl (0.8-1.5) 12/17/18 18:00 Est GFR ( Amer) > 60 12/17/18 04:20 Est GFR (Non-Af Amer) > 60 12/17/18 04:20 Random Glucose 89 mg/dL (75-110) 12/17/18 04:20 Calcium 8.8 mg/dL (8.4-10.2) 12/17/18 04:20 Total Bilirubin < 0.1 mg/dl (0.2-1.3) L 12/17/18 04:20 AST 32 U/L (17-59) 12/17/18 04:20 ALT 31 U/L (21-72) 12/17/18 04:20 Alkaline Phosphatase 64 U/L (38-126) 12/17/18 04:20 Total Protein 5.3 G/DL (6.3-8.2) L 12/17/18 04:20 Albumin 2.7 g/dL (3.5-5.0) L 12/17/18 04:20 Globulin 2.6 gm/dL (2.2-3.9) 12/17/18 04:20 Albumin/Globulin Ratio 1.0 (1.0-2.1) 12/17/18 04:20 Triglycerides 204 mg/DL (0-149) H 12/17/18 04:20 Cholesterol 209 mg/dL (0-199) H 12/17/18 04:20 LDL Cholesterol Direct 114 mg/dL (0-129) 12/17/18 04:20 HDL Cholesterol 38 MG/DL (30-70) 12/17/18 04:20 Amylase 86 U/L (30-110) 12/17/18 04:20 Lipase 101 U/L (23-300) 12/17/18 04:20 25-OH Vitamin D Total < 12.8 NG/ML (30.0-100.0) L 12/17/18 04:20 Thyroxine (T4) 8.43 ug/dl (5.5-11.0) 12/17/18 04:20 Total T3 1.14 nmol/L (1.49-2.60) L 12/17/18 04:20 TSH 3rd Generation 2.43 mIU/ML (0.46-4.68) 12/17/18 04:20 Urine Color Yellow (YELLOW) 12/17/18 03:53 Urine Clarity Slighty-cloudy (Clear) 12/17/18 03:53 Urine pH 8.0 (5.0-8.0) 12/17/18 03:53 Ur Specific [place] 1.010 (1.003-1.030) 12/17/18 03:53 Urine Protein >=500 mg/dL (NEGATIVE) 12/17/18 03:53 Urine Glucose (UA) 150 mg/dL (NEGATIVE) 12/17/18 03:53 Urine Ketones Negative mg/dL (NEGATIVE) 12/17/18 03:53 Urine Blood Negative (NEGATIVE) 12/17/18 03:53 Urine Nitrate Negative (NEGATIVE) 12/17/18 03:53 Urine Bilirubin Negative (NEGATIVE) 12/17/18 03:53 Urine Urobilinogen 0.2-1.0 mg/dL (0.2-1.0) 12/17/18 03:53 Ur Leukocyte Esterase Neg [place]q/uL (Negative) 12/17/18 03:53 Urine RBC (Auto) 7 /hpf (0-3) H 12/17/18 03:53 Urine Microscopic WBC 5 /hpf (0-5) 12/17/18 03:53 Ur Squamous Epith Cells 7 /hpf (0-5) H 12/16/18 16:43 Ur Renal Epithelial Cell 10 /hpf (0-3) H 12/16/18 16:43 Amorphous Sediment Few /ul (<OCC) H 12/16/18 16:43 Urine Bacteria Rare (<OCC) 12/17/18 03:53 Hyaline Casts 3-5 /hpf (0-2) H 12/16/18 16:43 Granular Casts (Auto) 97 /lpf (0-1) 12/16/18 16:43 Urine Collection Time 24 HRS 12/17/18 18:00 Urine Total Volume 4925 mL 12/17/18 18:00 Creatinine Clearance 114.0 mL/min (107-139) 12/17/18 18:00 Influenza Typ A,B (EIA) Negative for flu a/b (NEGATIVE) 12/16/18 16:43 Discharge Exam - Head Exam Head Exam: ATRAUMATIC, NORMAL INSPECTION, NORMOCEPHALIC Discharge Plan - Follow Up Plan Condition: STABLE Disposition: HOME/ ROUTINE Instructions: Dizziness, Nonvertigo, (DC)
[2018-12-19 11:07] LABS: CREATININE, 24 HOUR URINE 1.77 g/24 h (0.50-2.15)
--- NOTE | 2018-12-19 14:10 | CT ---
Date of service: 12/18/2018 PROCEDURE: CT Angiography of the Brain. HISTORY: vbi COMPARISON: None available. TECHNIQUE: CT angiography of the head and neck was performed following intravenous contrast administration. Coronal and sagittal maximum intensity projection reformatted images were generated. Contrast Dose: Visipaque 320, 90 cc Radiation dose: Total exam DLP = 483.97 mGy-cm. This CT exam was performed using one or more of the following dose reduction techniques: Automated exposure control, adjustment of the mA and/or kV according to patient size, and/or use of iterative reconstruction technique. FINDINGS: INTERNAL CEREBRAL ARTERIES: Note is made of trace calcified atherosclerosis of the bilateral cavernous internal carotid artery segments without significant stenosis. The skull base, petrous, and supraclinoid segments are bilaterally widely patent. ANTERIOR CEREBRAL ARTERIES: Unremarkable. A1 and A2 segments are widely patent. Smaller distal branches unremarkable, as visualized. MIDDLE CEREBRAL ARTERIES: Unremarkable. M1 and M2 segments are widely patent. Perisylvian branches grossly symmetric. POSTERIOR CIRCULATION: Basilar Artery: Unremarkable. Distal Vertebral Arteries: Unremarkable. Posterior Cerebral Arteries: Unremarkable. Posterior Inferior Cerebellar Arteries: Unremarkable. NECK CTA: Aortic Arch: Normal three vessel arch identified. Common Carotid arteries: The bilateral common carotid appear widely patent from their origins to their bifurcations with no significant stenosis appreciated. No evidence to suggest common carotid artery dissection. Internal Carotid arteries: No significant stenosis is appreciated throughout the cervical internal carotid artery segments bilaterally and there is no evidence of dissection either. External Carotid arteries: Appear unremarkable bilaterally. Vertebral arteries: The bilateral vertebral arteries appear normal in caliber from their origins to their distal cervical segments. No significant stenosis or definite pattern of dissection. ANEURYSM/ VASCULAR MALFORMATIONS: None. OTHER FINDINGS: 6.6 x 4.9 mm noncalcified nodule medial right pulmonary apex IMPRESSION: 1. No large vessel occlusion or significant stenosis appreciated throughout intracranial CT angiogram or neck CTA. 2. Trace calcified atherosclerosis bilateral cavernous ICA segments. 3. Incidental right apical pulmonary nodule 6.6 x 4.9 mm. Discrepant from preliminary report provided by [facility] 12/18/2018, 7:53 p.m.. Findings discussed with JUDIT Aguiar in lieu of Dr. Allen with written down and read back verification 12/19/2018 1:56 p.m..
== END 2018-12-18 23:30 | disposition home or self-care (01) | DRG 149 ==
LOC: H.ER 10:12 → H.ERHOLD 16:09 → H.TEL 18:49
PROVIDERS: ADMIT Internal Medicine Pulmonary Disease; ATTEND Internal Medicine Pulmonary Disease
DX: H81.10 Benign paroxysmal vertigo, unspecified ear (principal); E03.9 Hypothyroidism, unspecified; E78.00 Pure hypercholesterolemia, unspecified; E78.5 Hyperlipidemia, unspecified; I10 Essential (primary) hypertension; I73.9 Peripheral vascular disease, unspecified; K29.70 Gastritis, unspecified, without bleeding